=== PATIENT | female | born 1955 | race Caucasian/White ===

== ENCOUNTER → 2017-03-16 | Day surgery (SDC) | payer MEDICARE ==
[~2017-03-16] MED LIST: ADVAIR 500-501 EACH INH; ALBUTEROL 0.5ML INH; ALBUTEROL20 ml INH; ALPRAZOLAM PO; AMITRIPTYLINE H25 MG PO; ASPIRIN81 M2 PO; CYCLOBENZAPRINE5 MG PO; NEURONTIN300 MG PO; PERCOCET 7.5-31 EACH PO; SIMVASTATIN40 MG PO; TAMOXIFEN CITRA20 MG PO
--- NOTE | ~2017-03-16 | OR ---
Unit #: [id number] #: [id number] Patient: JEWELL BOTELLO [id number] [address] [address] [id number] O MR#: [id number] NAME: JEWELL BOTELLO ROOM: Date of Procedure: 03/16/2017 Admission Date: 03/16/2017 Surgeon: Suleman Hahn M.D. : 1955 Attending Physician: Suleman Hahn M.D. OPERATIVE REPORT PREOPERATIVE DIAGNOSES 1. Explantation of intrathecal pain pump. 2. Malfunction of intrathecal pump, Codman 3000. POSTOPERATIVE DIAGNOSES 1. Explantation of intrathecal pain pump. 2. Malfunction of intrathecal pump, Codman 3000. PROCEDURES PERFORMED 1. Removal of Codman intrathecal pump system. 2. Implantation of SynchroMed Medtronic II pump. 3. Implantation of Ascenda catheter. 4. Physician filling of pump. 5. Fluoroscopy. SURGICAL INDICATION AND RATIONALE Ms. Jewell Botello is a pleasant 61-year-old, , patient of [facility], who has had an intrathecal pump for well over 10 years. The patient had about 3 years ago moved from [place] to [facility] and at that time, she was not able to get a physician fill her pump and her Codman 3000 non-programmable pump went dry and according to the electrical helper that once this pump has been dry for over a month, it could no longer be used further. The patient was seen in my office about a month ago and it was determined that the catheter was still in her spine. Decision was then made to replace the Codman 3000 pump with a programmable Medtronic II intrathecal pump. The patient was suffering from chronic intractable pain secondary to multilevel degenerative disk disease and chronic arachnoiditis. The patient also has had an extensive education process regarding the risks, benefits and alternatives available including the consent decree and I used a teach-back method to make sure that the patient understood my explanations. The patient also had an education process with Maria Fernanda Montiel who is the [employer] eligibility services representative and had discussions regarding the consent decree also. The patient's questions were all answered by Ms. Montiel to her satisfaction. The patient has had a cardiac evaluation, which did not show any abnormalities. The patient is here to have removal and revision of intrathecal pump system. DESCRIPTION OF PROCEDURE After obtaining full informed consent and after discussion with the Unit #: [id number] #: [id number] Patient: JEWELL BOTELLO patient of possible complications including infection, bleeding, paralysis, spinal headaches, , and other perioperative complications were discussed with the patient and consent was obtained in front of nurse, Senait. The patient was then taken back to the operating room where general anesthesia was induced in the supine position. The patient was prepped and draped in the usual fashion. Standard monitors were placed. After the skin was anesthetized, I made an incision over the existing pump and I was able to deliver the intrathecal pump. Upon incising the silastic portion of the catheter, I was not able to see any CSF flow. In addition, the intrathecal catheter seemed to be extremely long in the pocket. This led me to believe that the catheter had been explanted in the last 30 days. The patient did tell me that she had a fall and this may have been what caused the catheter to be explanted. I did check this under fluoroscopy and I confirmed my diagnosis where the catheter was hanging right of the paravertebral gutter. At that time, after I informed the anesthesiologist, we then repositioned the patient in left lateral decubitus position and we once again prepped and draped the entire area. I also changed scrubs and glove. The surgical assistant also did the same. Then, in lateral view, I was able to identify the L2-L3 interspace and after the skin target sites were anesthetized, I made an incision with a #10 blade and I was able to locate the previous catheter, its anchor and I removed it in its entirety. There was no evidence of any CSF leak at all. Subsequently, I used a 17-gauge Tuohy needle to access the intrathecal space, which I was able to achieve at first pass with clear flow of CSF. I then navigated an [employer] catheter through the Tuohy needle to reach the upper border of T7 under live fluoroscopic view, both in AP and lateral views. I then removed the catheter stylet and the Tuohy needle and then I secured the catheter to the interspinous ligament using a special anchoring device. This anchoring device was then further secured to the underlying tissue using 3-0 Prolene sutures. This incision along with the pocket was copiously irrigated with irrigant. I then used a tunneling device to tunnel the catheter from the lumbar incision into the pocket. The pocket was then cut to size and after I was able to create enough space to accommodate the Medtronic pump, I placed a Tyrx pouch in the base of the pocket. I then cut the catheter to size and used a special connecting catheter to connect this piece of catheter with the catheter connecting the pump. Once the system was intact, I aspirated the intrathecal pump using a 24-gauge Rojas needle and I was able to get CSF. This represents the intactness of the catheter along the pump system. The pump was then secured to the underlying tissue using 3-0 Prolene sutures. The 2 incisions were then carefully inspected and closed using interrupted Vicryl sutures in 2 layers. The skin was then approximated with asia and a Telfa and Tegaderm dressing was placed. The patient was then brought back to the recovery room for neurological monitoring. PLAN OF CARE The patient was discharged home neurologically intact with plans to return to my office in 7 days to have her asia removed. The patient's pump has been filled with Dilaudid at a concentration of 5 mg/mL, and the patient's daily dose is going to be 0.24 mg per day. The patient also has the ability to access her patient physiotherapy aide delivering 0.02 mg up to 3 activations today. In other words, a total maximum activation the patient will receive 0.29 mg of hydromorphone a day. The Medtronic catheter serial number is [id number] and a Medtronic SynchroMed pump serial number is [id number]. I also had a discussion with the patient's family member regarding the course of the surgical procedure and he acknowledges understanding of my explanation. Unit #: [id number] #: [id number] Patient: JEWELL BOTELLO Dictated by... Shira Welsh/angeles TD: 03/17/2017 05:52 JOB #: [id number] OPERATIVE REPORT Page 1 of 1 X Suleman Hahn MD PROCEDURE OPERATIVE NOTE
--- NOTE | ~2017-03-16 | EKG ---
PATIENT: JEFFERY FIGUEREDO UNIT #: [id number] Ventricular Rate: 96 BPM Atrial Rate: 96 BPM P-R Interval: 128 ms QRS Duration: 90 ms Q-T Interval: 352 ms QTC Calculation(Bezet): 444 ms P Rumely: 81 degrees Calculated R Rumely: 69 degrees Calculated T Rumely: 67 degrees Diagnosis Line: Normal sinus rhythm Diagnosis Line: Right atrial enlargement Diagnosis Line: Borderline ECG Diagnosis Line: No previous ECGs available Diagnosis Line: Confirmed by AUGUSTA CARBALLO, JUAN ([id number]) on Diagnosis Line: 03/16/2017 4:24:19 PM INTERPRETING MD: BON
== END | disposition home or self-care (01) ==
LOC: CSUR 06:18
DX: T85.615A Breakdown (mechanical) of other nervous system device, implant or graft, initial encounter (principal); J43.9 Emphysema, unspecified; I10 Essential (primary) hypertension; E78.5 Hyperlipidemia, unspecified; I73.9 Peripheral vascular disease, unspecified; G89.4 Chronic pain syndrome; F17.210 Nicotine dependence, cigarettes, uncomplicated; Z88.0 Allergy status to penicillin; Z88.8 Allergy status to other drugs, medicaments and biological substances; Z85.3 Personal history of malignant neoplasm of breast; Z79.82 Long term (current) use of aspirin; Z79.891 Long term (current) use of opiate analgesic; Z79.51 Long term (current) use of inhaled steroids; Z79.899 Other long term (current) drug therapy; Z98.890 Other specified postprocedural states; Y83.8 Other surgical procedures as the cause of abnormal reaction of the patient, or of later complication, without mention of misadventure at the time of the procedure
CPT/HCPCS: 77003; 93005; C1772; J1170; J2250; J2370; J2405; J3010; J3370